=== PATIENT | female | born 1985 | race Caucasian/White ===

== ENCOUNTER 2017-03-29 14:05 | Emergency (ER) | payer MEDICAID, OTHER ==
[2017-03-29 14:17] VITALS: BP 147/93
--- NOTE | 2017-03-29 14:59 | RAD ---
INDICATION: Back pain. COMPARISON: CT abdomen pelvis July 27, 2015 TECHNIQUE: Routine PA, lateral, and oblique imaging was performed . FINDINGS: Bones: There are no acute bony findings. There are arthritic changes consisting of moderate narrowing about L4-L5 and mild narrowing about L5-S1, unchanged. Alignment: Normal Disc spaces: The disc spaces are well-maintained Soft tissues: There are no soft tissue abnormalities. There is an IUD. IMPRESSION: DEGENERATIVE NARROWING LOWER 2 LUMBAR DISC SPACES. NO ACUTE FINDINGS
== END 2017-03-29 16:01 | disposition left against medical advice (07) ==
LOC: ED 14:05
DX: M54.9 Dorsalgia, unspecified (principal); Z53.21 Procedure and treatment not carried out due to patient leaving prior to being seen by health care provider
CPT/HCPCS: 72110

== ENCOUNTER 2017-07-01 11:01 | Emergency (ER) | payer OTHER ==
[2017-07-01 12:57] VITALS: BP 164/89
[2017-07-01] MEDS ORDERED: Ketorolac INJ* 60 MG/2 ML VIAL IM ONE (15:07)
--- NOTE | 2017-07-01 15:08 | ED ---
Back Pain - History of Current Complaint Chief Complaint: EDBackInjuryPain Stated Complaint: FALL/BACK PAIN Time Seen by Provider: 07/01/17 13:32 Pain Intensity: 7 - Allergies/Home Medications Allergies/Adverse Reactions: Allergies Allergy/AdvReac Type Severity Reaction Status Date / Time Latex Allergy Rash And Verified 01/02/16 14:10 Itching PMH/Surg Hx/FS Hx/Imm Hx Musculoskeletal History: Reports: Other Musculoskeletal History - Bilateral Knee Surgery 13-15yo Psychiatric History: Reports: Hx Anxiety, Hx Depression, Hx Bipolar Disorder Denies: Hx Eating Disorder, Hx of Violent Episodes Against Others - Surgical History Surgery Procedure, Year, and Place: GASTRIC BYPASS - Immunization History Immunizations Up to Date: Yes Infectious Disease History: No Infectious Disease History: Denies: Traveled Outside the [place] in Last 30 Days - Family History Known Family History: Positive: Unknown - Social History Alcohol Use: Rare Substance Use Type: Reports: Marijuana Substance Use Comment - Amount & Last Used: last week Smoking Status (MU): Heavy Every Day Tobacco Smoker Physical Exam Vital Signs On Initial Exam: Initial Vitals Temp Pulse Resp BP Pulse Ox 97.0 F 85 18 145/91 97 07/01/17 11:14 07/01/17 11:14 07/01/17 11:14 07/01/17 11:14 07/01/17 11:14 - Tim Coma Scale Coma Scale Total: 15 Diagnostics - Vital Signs Vital Signs Temp Pulse Resp BP Pulse Ox 07/01/17 12:54 97.1 F 77 16 164/89 98 07/01/17 11:14 97.0 F 85 18 145/91 97 - Laboratory Lab Statement: Any lab studies that have been ordered have been reviewed, and results considered in the medical decision making process. Back Pain Course/Dx - Diagnoses Provider Diagnoses: Low back strain Discharge - Discharge Plan Condition: Stable Disposition: HOME Patient Education Materials: Low Back Strain (ED), Acute Low Back Pain (ED), Chronic Back Pain (ED) Referrals: Anamika Cai PA [Primary Care Provider] - Additional Instructions: Rest, apply heat. Avoid lifting and over use. Increase fluid intake. Continue taking ibuprofen, starting tomorrow as you already had todays dose. Do not take more than 800mg in 8 hours, take with food. Muscle relaxer at bed time. Prescribed pain medication only for break through pain, do not drive while taking this. Lidoderm patch or topical gels over the counter like salonpas to help with pain. Remember to remove patches, including the one placed on in ED, in 12 hours. Any new or worsening symptoms, seek medical attention as we discussed. Follow up with PCP.
[2017-07-01] MEDS ORDERED: Lidocaine PATCH 5%* 1 PATCH ONE (15:22)
[2017-07-01 15:50] LABS: Urine Bilirubin Negative (Negative); Urine Glucose Negative (Negative); Urine Nitrite Negative (Negative)
[2017-07-01] MEDS ORDERED: Lidocaine PATCH 5%* 1 PATCH TRANSDERM SCH (16:00)
[2017-07-01] MEDS ORDERED: Lidocaine Patch REMOVE* 1 NOTE MISC SCH (21:00)
== END 2017-07-01 16:03 | disposition home or self-care (01) ==
LOC: ED 11:01
DX: S39.012A Strain of muscle, fascia and tendon of lower back, initial encounter (principal); W19.XXXA Unspecified fall, initial encounter; Y92.9 Unspecified place or not applicable; F32.9 Major depressive disorder, single episode, unspecified; F41.9 Anxiety disorder, unspecified; Z98.84 Bariatric surgery status; Z72.0 Tobacco use
CPT/HCPCS: 81003; 96372; 99282; A9270-GY; J1885

== ENCOUNTER 2018-07-06 14:47 | Emergency (ER) | payer OTHER ==
[2018-07-06] MEDS ORDERED: NS 0.9% 1000 ML* 1,000 ML IV ONE (14:58)
[2018-07-06] MEDS ORDERED: Ketorolac INJ* 30 MG/ML 1 ML VIAL IV PUSH ONE (14:58)
[2018-07-06] MEDS ORDERED: Metoclopramide IV* 5 MG/ML 2 ML VIAL IV ONE (14:58)
[2018-07-06] MEDS ORDERED: DiMENhydriNATE IV* 50 MG/ML VIAL IV PUSH ONE (14:59)
--- NOTE | 2018-07-06 15:07 | ED ---
Headache - HPI Summary HPI Summary: This patient is a 33 year old F presenting to [facility] with a chief complaint of a sudden onset, fluctuating, throbbing occipital headache since 4 days ago. The patient rates the pain 6/10 in severity. Symptoms aggravated by exertion. Patient reports congestion, sensitivity to light, sensitivity to sound, nausea, vomiting (while sleeping), and seeing a starburst in her vision (yesterday). Patient denies a cough and sinus pain. Patient has been taking Tylenol and Excedrin migraine without relief. She has an IUD so has not had a LNMP recently. Patient reports a PMHx of anxiety, bipolar disorder, and autism. - History Of Current Complaint Chief Complaint: EDHeadache Stated Complaint: HEADACHE/VOMITING Time Seen by Provider: 07/06/18 14:58 Hx Obtained From: Patient Onset/Duration: Started days ago - 4 days ago, Still Present Currently Pain Is: Current Pain Scale(0-10)= - 6 Location of Headache: Occipital Aggravating Factor: Exertion Associated Signs And Symptoms: Nausea, Vomiting - while sleeping, Visual Changes - Sensitivity to light, seeing a starburst in her vision (yesterday), Other (Noted In Comments) - Sensitivity to sound, congestion. Denies cough and sinus pain. - Allergies/Home Medications Allergies/Adverse Reactions: Allergies Allergy/AdvReac Type Severity Reaction Status Date / Time latex Allergy Rash And Verified 07/06/18 14:48 Itching PMH/Surg Hx/FS Hx/Imm Hx Endocrine/Hematology History: Denies: Hx Diabetes Cardiovascular History: Denies: Hx Hypertension Respiratory History: Denies: Hx Asthma Musculoskeletal History: Reports: Other Musculoskeletal History - Bilateral Knee Surgery [age]yo Psychiatric History: Reports: Hx Anxiety, Hx Depression, Hx Bipolar Disorder Denies: Hx Eating Disorder, Hx of Violent Episodes Against Others - Surgical History Surgery Procedure, Year, and Place: GASTRIC BYPASS Infectious Disease History: No Infectious Disease History: Denies: Traveled Outside the [place] in Last 30 Days - Family History Known Family History: Positive: Cardiac Disease, Other - MS, cancer - Social History Alcohol Use: Rare Substance Use Type: Reports: Marijuana Substance Use Comment - Amount & Last Used: last week Smoking Status (MU): Heavy Every Day Tobacco Smoker Review of Systems Positive: Other - Congestion. Denies sinus pain. Negative: Cough Positive: Vomiting - while sleeping, Nausea Neurological: Other - Sensitivity to light, sensitivty to sound, seeing a starburst in her vision (yesterday) Positive: Headache - sudden onset, fluctuating, throbbing occipital headache All Other Systems Reviewed And Are Negative: Yes Physical Exam - Summary Physical Exam Summary: Appearance: Well appearing, obese, no pain distress Skin: warm, dry, reflects adequate perfusion Head/face: normal Eyes: EOMI, KATELYN ENT: Slight clear nasal congestion, no sinus tenderness Neck: supple, non-tender, no meningismus Respiratory: CTA, breath sounds present Cardiovascular: RRR, pulses symmetrical Abdomen: non-tender, soft Bowel Sounds: present Musculoskeletal: normal, strength/ROM intact Neuro: normal, sensory motor intact, A&Ox3 Triage Information Reviewed: Yes Vital Signs On Initial Exam: Initial Vitals Temp Pulse Resp BP Pulse Ox 97.3 F 102 18 117/65 97 07/06/18 14:49 07/06/18 14:49 07/06/18 14:49 07/06/18 14:49 07/06/18 14:49 Vital Signs Reviewed: Yes Diagnostics - Vital Signs Vital Signs Temp Pulse Resp BP Pulse Ox 07/06/18 14:49 97.3 F 102 18 117/65 97 - Laboratory Lab Statement: Any lab studies that have been ordered have been reviewed, and results considered in the medical decision making process. Re-Evaluation - Re-Evaluation 1 Re-Evaluation Time: 16:14 Change: Improved Comment: Headache has totally resolved. Headache Course/Dx - Course Course Of Treatment: Nurse's note reviewed. Patient with occipital headache exacerbated by stress. Neurologically normal and well appearing. No neurologic signs and no thunderclap headache. Treated here with full relief. Discharged in good condition to follow up closely with primary care physician. - Diagnoses Differential Diagnosis/HQI/PQRI: Migraine, Sinus Headache, Tension Headache, Viral Syndrome Provider Diagnoses: Tension type headache Discharge - Sign-Out/Discharge Documenting (check all that apply): Patient Departure - D/C - Discharge Plan Condition: Improved Disposition: HOME Prescriptions: Promethazine TAB* [Phenergan Tab*] 25 mg PO Q8H PRN #20 tab PRN Reason: headache/nausea Patient Education Materials: Tension Headache (ED) Referrals: Anamika Cai PA [Primary Care Provider] - Additional Instructions: Stay well-hydrated. Prescribed medication to be taken with Benadryl and ibuprofen as needed for worsening. This may cause drowsiness. Do not drive while taking. Return with fevers, neck pains, severe headaches, new symptoms or other concerns. Follow-up with your doctor on Sunday. - Billing Disposition and Condition Condition: IMPROVED Disposition: Home - Attestation Statements Document Initiated by Felix: Yes Documenting Scribe: Kevin Foley Provider For Whom Scribe is Documenting (Include Credential): Benny Orellana MD Scribe Attestation: Kevin Payne, scribed for Benny Orellana MD on 07/06/18 at 1659. Scribe Documentation Reviewed: Yes Provider Attestation: The documentation as recorded by the Kevin jacobs accurately reflects the service I personally performed and the decisions made by , Benny Orellana MD Status of Scribe Document: Viewed
[2018-07-06 16:30] VITALS: BP 112/57
== END 2018-07-06 16:27 | disposition home or self-care (01) ==
LOC: ED 14:47
DX: G44.209 Tension-type headache, unspecified, not intractable (principal); R11.10 Vomiting, unspecified; F17.210 Nicotine dependence, cigarettes, uncomplicated
CPT/HCPCS: 96361; 96374; 96375; 99282; J1240; J1885; J2765

== ENCOUNTER 2018-07-07 05:23 | Emergency (ER) | payer OTHER ==
[2018-07-07] MEDS ORDERED: NS 0.9% 1000 ML* 1,000 ML IV ONE (06:37)
[2018-07-07 06:52] LABS: ABS Basophils 0.1 10^3/ul (0-0.2); ABS Eosinophils 0.9 10^3/ul (0-0.6); ABS Lymphocytes 2.8 10^3/ul (1.0-4.8); ABS Monocytes 0.8 10^3/ul (0-0.8); ABS Neutrophils 5.1 10^3/ul (1.5-7.7); ABS Nucleated RBC 0 10^3/ul; Eosinophil % 9.2 %; Hematocrit 35 % (35-47); Hemoglobin 11.5 g/dl (12.0-16.0); Lymphocyte % 28.7 %; Mean Corpuscular HGB Conc 33 g/dl (31-36); Mean Corpuscular Hemoglobin 29 pg (27-31); Mean Corpuscular Volume 88 fL (80-97); Mean Platelet Volume 7.1 fL (7.4-10.4); Nucleated Red Blood Cells % 0; Platelet Count 317 10^3/ul (150-450); Red Blood Count 3.96 10^6/ul (4.00-5.40); Red Cell Distribution Width 19 % (10.5-15); White Blood Count 9.6 10^3/ul (3.5-10.8)
[2018-07-07 07:01] LABS: Activated Partial Thrombo Time 34.3 seconds (26.0-36.3); INR 0.82 (0.77-1.02)
[2018-07-07 07:10] LABS: ALT 31 U/L (7-52); AST 27 U/L (13-39); Albumin 3.8 g/dL (3.2-5.2); Albumin/Globulin Ratio 1.5 (1-3); Alkaline Phosphatase 115 U/L (34-104); Anion Gap 5 mmol/L (2-11); BUN/Creatinine Ratio 13.8 (8-20); Blood Urea Nitrogen 12 mg/dL (6-24); CO2 Carbon Dioxide 23 mmol/L (22-32); Calcium 8.7 mg/dL (8.6-10.3); Chloride 109 mmol/L (101-111); Globulin 2.6 g/dL (2-4); Glucose 85 mg/dL (70-100); Potassium 4.1 mmol/L (3.5-5.0); Sodium 137 mmol/L (135-145); Total Protein 6.4 g/dL (6.4-8.9)
--- NOTE | 2018-07-07 07:11 | ED ---
Headache - HPI Summary HPI Summary: Patient presents again today with return of headache. She was seen yesterday for headache and treated with Dramamine, Reglan, Toradol and normal saline. This alleviated her headache while here however she reports after getting home, headache returned and has been unbearable since. She reports this headache started on Sunday (5 days ago) as a dull headache in the middle of the day - slow at onset and progressed throughout the day. She reports this is a bitemporal headache that she also feels on both sides of her neck into the back and shoulder area. Associated sx on Sunday only include waking with vomiting, aura "starburts" in B/L vision, Lt arm "pins and needles" which resolved following day (no weakness). Following day she reports tingling in Rt arm - this has also resolved. Today, MOON is throbbing. Denies dizziness, syncope, dysarthria, dysphagia, confusion. Reports she is not prone to headaches so this is unusual for her. She reports a history of tension in her neck and shoulders and her tries massages for her although he sometimes gets "cramps in his hands" due to the severity of her tension. She has not had professional bodywork such as massage, chiropractor, etc. to alleviate this issue. Also reports she started taking Lamictal 1 month ago. She's had loose stools since. Could be dehydrated. She also started CBD oil 1 week ago. She admits to smoking marijuana in addition to this. Furthermore, she admits when she has anxiety or feels overwhelmed, she is prone to striking her head on hard surfaces. She reports striking her head one week ago which resulted in a hematoma on her forehead. She denies loss of consciousness at that time and no acute pain during or immediately after the episode. Sinus congestion persists w/ intermittent ear pressure. Has not tried anything for this. Smokes 1 PPD and home temp 69F. Denies fever, chills, sneezing, change in cough (has chronic cough from smoking). Mom h/o MS - has not been evaluated d/t lack of neuro sx. - History Of Current Complaint Chief Complaint: EDHeadache Stated Complaint: HEADACHE Time Seen by Provider: 07/07/18 05:43 Hx Obtained From: Patient, Family/Laundry Bag Punch Operator - mother - Allergies/Home Medications Allergies/Adverse Reactions: Allergies Allergy/AdvReac Type Severity Reaction Status Date / Time latex Allergy Rash And Verified 07/07/18 05:38 Itching Home Medications: Home Medications Gabapentin 300 mg PO BEDTIME PRN 07/07/18 [History Confirmed 07/07/18] Levothyroxine Sodium 75 mcg PO QAM 07/07/18 [History Confirmed 07/07/18] Lurasidone(*) [Latuda] 120 mg PO DAILY 07/07/18 [History Confirmed 07/07/18] Omeprazole 40 mg PO DAILY 07/07/18 [History Confirmed 07/07/18] clonazePAM [Clonazepam] 0.5 mg PO TID 07/07/18 [History Confirmed 07/07/18] lamoTRIgine [Lamotrigine] 100 mg PO DAILY 07/07/18 [History Confirmed 07/07/18] PMH/Surg Hx/FS Hx/Imm Hx Previously Healthy: No - MOON yesterday Endocrine/Hematology History: Reports: Hx Thyroid Disease - takes levothyroxine Denies: Hx Diabetes, Hx Anemia, Autoimmune Disease Cardiovascular History: Denies: Hx Aneurysm, Hx Hypertension Respiratory History: Denies: Hx Asthma GI History: Reports: Hx Gastroesophageal Reflux Disease - takes PRN PPI and sucralfate Musculoskeletal History: Reports: Hx Back Problems - neck/shoulder tension, Other Musculoskeletal History - Bilateral Knee Surgery 13-15yo Sensory History: Reports: Hx Contacts or Glasses Opthamlomology History: Reports: Hx Contacts or Glasses Neurological History: Denies: Hx Migraine, Hx Peripheral Neuropathy, Hx Seizures Psychiatric History: Reports: Hx Anxiety, Hx Depression, Hx Bipolar Disorder, Other Psychiatric Issues/Disorders - on multiple medications, h/o self-injurous behavior Denies: Hx Eating Disorder, Hx of Violent Episodes Against Others - Surgical History Surgery Procedure, Year, and Place: GASTRIC BYPASS Infectious Disease History: No Infectious Disease History: Denies: Traveled Outside the [place] in Last 30 Days - Family History Known Family History: Positive: Cardiac Disease, Other - MS, cancer - Social History Occupation: Unemployed Lives: With Family - Alcohol Use: Weekly Hx Substance Use: Yes Substance Use Type: Reports: Marijuana - 2 days ago -also takes CBD Hx Tobacco Use: Yes Smoking Status (MU): Current Every Day Smoker Amount Used/How Often: 1PPD Review of Systems Constitutional: Negative Negative: Fever, Chills, Fatigue Eyes: Other - aura Sunday Negative: Photophobia, Blurred Vision, Diplopia, Drainage, Erythema ENT: Other - sinus pressure Rt > Lt Cardiovascular: Negative Positive: Cough - unchanged/chronic Positive: Vomiting - Sunday only Genitourinary: Negative Musculoskeletal: Other - neck/shoulder tension Skin: Negative Positive: Headache, Paresthesia - each arm on separate days - resolved. Negative: Weakness, Numbness, Syncope, Slurred Speech Psychological: Normal All Other Systems Reviewed And Are Negative: Yes Physical Exam Triage Information Reviewed: Yes Vital Signs On Initial Exam: Initial Vitals Temp Pulse Resp BP Pulse Ox 97.7 F 91 16 145/87 97 07/07/18 05:34 07/07/18 05:34 07/07/18 05:34 07/07/18 05:34 07/07/18 05:34 Vital Signs Reviewed: Yes Appearance: Positive: Well-Appearing, Pain Distress - mild, Obese Skin: Positive: Warm, Skin Color Reflects Adequate Perfusion, Dry - healing linear scabs over Lt forearm (appear to be self-injurous wounds) Head/Face: Positive: Normal Head/Face Inspection Eyes: Positive: Normal, EOMI, KATELYN, Conjunctiva Clear. Negative: Conjunctiva Inflammed, Discharge ENT: Positive: Hearing grossly normal, Nasal congestion, Nasal drainage - dried blood and nasal d/c, TMs normal, Sinus tenderness - B/L frontal and Rt maxillary > Lt, Uvula midline. Negative: Pharynx normal - dry mucous membranes with dried blood flecks over soft palate, Tonsillar swelling, Tonsillar exudate , Trismus, Muffled voice, Hoarse voice Neck: Positive: Supple, No Lymphadenopathy, Tenderness @ - submandibular Respiratory/Lung Sounds: Positive: Clear to Auscultation, Breath Sounds Present. Negative: Rales, Rhonchi, Stridor, Tracheal Deviation, Wheezes, Unable to speak in full sentences, Fatigue Cardiovascular: Positive: Normal, RRR, S1, S2. Negative: Murmur, Rub Musculoskeletal: Positive: Normal, Strength/ROM Intact Neurological: Positive: Normal, Sensory/Motor Intact, Alert, Oriented to Person Place, Time, CN Intact II-III, Facial Symmetry, Speech Normal Psychiatric: Positive: Normal Diagnostics - Vital Signs Vital Signs Temp Pulse Resp BP Pulse Ox 07/07/18 05:34 97.7 F 91 16 145/87 97 - Laboratory Lab Results: Lab Results 07/07/18 07/07/18 Range/Units 06:46 06:46 WBC 9.6 (3.5-10.8) 10^3/ul RBC 3.96 L (4.00-5.40) 10^6/ul Hgb 11.5 L (12.0-16.0) g/dl Hct 35 (35-47) % MCV 88 (80-97) fL MCH 29 (27-31) pg MCHC 33 (31-36) g/dl RDW 19 H (10.5-15) % Plt Count 317 (150-450) 10^3/ul MPV 7.1 L (7.4-10.4) fL Neut % (Auto) 52.8 % Lymph % (Auto) 28.7 % Loup % (Auto) 8.4 % Eos % (Auto) 9.2 % Baso % (Auto) 0.9 % Absolute Neuts (auto) 5.1 (1.5-7.7) 10^3/ul Absolute Lymphs (auto) 2.8 (1.0-4.8) 10^3/ul Absolute Monos (auto) 0.8 (0-0.8) 10^3/ul Absolute Eos (auto) 0.9 H (0-0.6) 10^3/ul Absolute Basos (auto) 0.1 (0-0.2) 10^3/ul Absolute Nucleated RBC 0 10^3/ul Nucleated RBC % 0 ESR Pending INR (Anticoag Therapy) 0.82 (0.77-1.02) APTT 34.3 (26.0-36.3) seconds Result Diagrams: 07/07/18 06:46 07/07/18 06:46 Lab Statement: Any lab studies that have been ordered have been reviewed, and results considered in the medical decision making process. Re-Evaluation - Re-Evaluation First Eval Change: Improved - pain improved to 2/10 Headache Course/Dx - Course Course Of Treatment: CT: no hemorrhage or swelling in brain; maxilla w/ mild mucosal thickening. Labs: unremarkable for acute pathology. improved w/ cocktail -added steroid today and will start tx of sinus infection. Also recommended addressing neck/shoulder tension which could be triggering MOON along w/ other potential factors (see d/c for details). Advised to f/u w/ PCP and return to ED for danger s/sx. - Diagnoses Provider Diagnoses: Headache, Sinusitis, acute maxillary, Muscle tightness Discharge - Sign-Out/Discharge Documenting (check all that apply): Patient Departure - Discharge Plan Condition: Stable Disposition: HOME Patient Education Materials: How to Stop Smoking (ED), Sinusitis (ED), Tension Headache (ED) Referrals: Anamika Cai PA [Primary Care Provider] - Additional Instructions: The definitive cause of your headache was not identified today however it is suspected this could be from various factors: *Tension in neck and shoulders *CBD oil *Lamictal *Stress *Sinus infection *Dehydration You have been provided with a "migraine cocktail" of medications here today. See education from yesterday for ongoing home treatment of headache. You may alternate ibuprofen 600mg every 6 hours with acetaminophen extra strength every 6 hours as needed for pain. You were provided with an anti-nausea medication yesterday - go to pharmacy to pick this up and take as needed. Stop CBD oil and refrain from smoking marijuana until follow-up with prescriber. Follow-up with PCP to better identify root cause and makes changes as necessary. Call tomorrow to schedule an appointment this week if symptoms persist. For sinusitis: Complete antibiotics as directed Nasal wash (netti pot or saline spray) & salt water throat gargles 2 x day Drink you body weight in ounces of water every day - may also drink soup brothes, watered down juices, etc Sleep 8+ hours per night Avoid Dairy and sugar Hot herbal/decaf tea with lemon & honey Chicken broth (preferably organic, free range chicken) Humidifier in house, but especially near bed at night Keep home temperature at 68F or less to reduce dryness Use cough drops/throat lozenges Try a facial steam with or without eucalyptus essential oil or Flo's Vapor rub for congestion Avoid smoking, candles, perfumes, colognes, scented soaps/detergents , air fresheners and cleaning chemicals as these can cause airway irritation and trigger coughing Start MULTIVITAMIN during winter months Follow-up with PCP to have Vitamin D levels checked Start probiotics in between antibiotics (ie. Yogurt and/or capsules of L. acidophilus, L. bifidus, L. casei, etc) *If you have neurological deficits, high fever > 103F with taking acetaminophen and ibuprofen, lethargy, etc return to ED. Otherwise, follow-up with PCP. Call tomorrow to schedule an appointment. - Billing Disposition and Condition Condition: STABLE Disposition: Home
[2018-07-07 07:17] LABS: HCG Pregnancy < 0.60 mIU/mL
[2018-07-07] MEDS ORDERED: Dexamethasone IV* 4 MG/ML 1 ML (4 MG) IV SLOW PU ONE (07:22)
[2018-07-07] MEDS ORDERED: Ketorolac INJ* 30 MG/ML 1 ML VIAL IV PUSH ONE (07:22)
[2018-07-07] MEDS ORDERED: Metoclopramide IV* 5 MG/ML 2 ML VIAL IV ONE (07:22)
[2018-07-07] MEDS ORDERED: DiMENhydriNATE IV* 50 MG/ML VIAL IV PUSH ONE (07:22)
[2018-07-07 07:39] LABS: Erythrocyte Sed Rate 23 mm/Hr (0-14)
[2018-07-07 07:40] LABS: TSH (Thyroid Stimulating Horm) 1.42 mcIU/mL (0.34-5.60)
[2018-07-07 08:35] VITALS: BP 145/90
== END 2018-07-07 08:34 | disposition home or self-care (01) ==
LOC: ED 05:23
DX: R51 Headache (principal); J01.00 Acute maxillary sinusitis, unspecified; F17.210 Nicotine dependence, cigarettes, uncomplicated; M62.9 Disorder of muscle, unspecified; F32.9 Major depressive disorder, single episode, unspecified; K21.9 Gastro-esophageal reflux disease without esophagitis; F41.9 Anxiety disorder, unspecified
CPT/HCPCS: 36415; 70450; 70486; 80053; 83605; 83735; 84443; 84702; 85025; 85610; 85652; 85730; 96361; 96374; 96375; 99283; J1100; J1240; J1885; J2765

== ENCOUNTER 2018-07-08 17:08 | Emergency (ER) | payer OTHER ==
[2018-07-08] MEDS ORDERED: Nicotine Inhaler* 10 MG AMP INH PRN (17:27)
[2018-07-08] MEDS ORDERED: Mouth Piece, Nicotine* 1 EACH CARTRIDGE INH PRN (17:42)
[2018-07-08 17:48] LABS: ABS Basophils 0.1 10^3/ul (0-0.2); ABS Eosinophils 0.6 10^3/ul (0-0.6); ABS Lymphocytes 4.4 10^3/ul (1.0-4.8); ABS Neutrophils 6.4 10^3/ul (1.5-7.7); ABS Nucleated RBC 0 10^3/ul; Eosinophil % 4.5 %; Hematocrit 38 % (35-47); Hemoglobin 12.6 g/dl (12.0-16.0); Lymphocyte % 35.2 %; Mean Corpuscular HGB Conc 33 g/dl (31-36); Mean Corpuscular Hemoglobin 29 pg (27-31); Mean Corpuscular Volume 88 fL (80-97); Mean Platelet Volume 6.9 fL (7.4-10.4); Nucleated Red Blood Cells % 0; Platelet Count 359 10^3/ul (150-450); Red Blood Count 4.36 10^6/ul (4.00-5.40); Red Cell Distribution Width 19 % (10.5-15); White Blood Count 12.4 10^3/ul (3.5-10.8)
[2018-07-08 18:05] LABS: ALT 36 U/L (7-52); AST 29 U/L (13-39); Albumin 4.4 g/dL (3.2-5.2); Albumin/Globulin Ratio 1.4 (1-3); Alkaline Phosphatase 109 U/L (34-104); Anion Gap 10 mmol/L (2-11); BUN/Creatinine Ratio 6.8 (8-20); Blood Urea Nitrogen 6 mg/dL (6-24); CO2 Carbon Dioxide 20 mmol/L (22-32); Chloride 111 mmol/L (101-111); Globulin 3.2 g/dL (2-4); Glucose 106 mg/dL (70-100); Potassium 3.8 mmol/L (3.5-5.0); Sodium 141 mmol/L (135-145); Total Protein 7.6 g/dL (6.4-8.9)
[2018-07-08 18:11] LABS: HCG Pregnancy < 0.60 mIU/mL
[2018-07-08 18:21] LABS: Acetaminophen < 15 mcg/mL; Alcohol 144 mg/dL (<10); Salicylate < 2.50 mg/dL (<30)
[2018-07-08 18:36] LABS: TSH (Thyroid Stimulating Horm) 3.35 mcIU/mL (0.34-5.60)
[2018-07-08 18:47] LABS: Urine Appearance Cloudy; Urine Bacteria Absent (Absent); Urine Bilirubin Negative (Negative); Urine Blood Negative (Negative); Urine Color Yellow; Urine Glucose Negative (Negative); Urine Ketones Negative (Negative); Urine Nitrite Negative (Negative); Urine Protein Negative (Negative); Urine Red Blood Cell Trace(0-2/hpf) (Absent); Urine Urobilinogen Negative (Negative); Urine White Blood Cell Trace(0-5/hpf) (Absent)
[2018-07-08 18:58] LABS: Barbiturates Urine Screen None Detected (None Detect); Benzodiazepine Urine Screen None Detected (None Detect); Urine Cannabinoids Screen Presumptive Positive (None Detect)
[2018-07-08] MEDS ORDERED: Ketorolac TAB * 10 MG TAB PO ONE (20:12)
[2018-07-08] MEDS ORDERED: Metoclopramide TAB* 10 MG PO ONE (20:14)
[2018-07-08] MEDS ORDERED: diPHENhydraMINE PO* 25 MG PO ONE (20:14)
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
[2018-07-08 21:44] VITALS: BP 127/82
== END 2018-07-08 21:54 | disposition home or self-care (01) ==
LOC: ED 17:08
DX: F32.9 Major depressive disorder, single episode, unspecified (principal); R51 Headache; F17.210 Nicotine dependence, cigarettes, uncomplicated; E07.9 Disorder of thyroid, unspecified
CPT/HCPCS: 36415; 80053; 80307; 80320; 80329; 81003; 81015; 84443; 84702; 85025; 87086; 99285; A9270-GY; G0480

== ENCOUNTER 2019-08-02 10:13 | Emergency (ER) | payer MEDICARE, MEDICAID ==
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
--- OUTSIDE RECORDS SUMMARY | 2019-08-02 10:31 | XMS REPORT | Summary of Care ---
:1985 Author Organization [facility] Address [address] [facility] [place] [address] Care Team Providers Name Role Phone Anamika Cai PA-C Primary Care Provider Reason for Visit Reason Comments Follow-up Patient c/o left knee pain for about 1 year. Previous injections have given her 65% relief for 2months. Pain currently 8/10. Injection Encounter Details Date Type Department Care Team Description 07/22/2019 Office Visit [facility] Srinivas Emn, Osteoarthrosis, localized, primary, knee, left (Primary Dx) ; [address] [place] Chronic pain of left knee; [address] [facility] Hx [place] anterior [place] [address] [place] [address] [phone] Allergies Active Allergy Reactions Severity Noted Date Comments Latex Rash 11/17/2010 documented as of this encounter (statuses as of 07/22/2019) Medications Medication Sig Dispensed Refills Start Date [...] EVERY 7 VITAMIN D) 1.25 MG DAYS (74648 UT) Oral Cap documented as of this encounter (statuses as of 07/22/2019) Active Problems Problem Noted Date Hx of anterior cruciate ligament tear reconstruction 11/05/2018 Hypothyroidism 02/11/2018 Tobacco abuse 08/21/2016 Bipolar II disorder 01/10/2016 Insomnia 11/13/2015 documented as of this encounter (statuses as of 07/22/2019) Resolved Problems Problem Noted Date Resolved Date OLIMPIA (generalized anxiety disorder) 11/13/2015 01/10/2016 Depression 10/23/2012 01/10/2016 Anxiety state, unspecified 10/23/2012 01/10/2016 documented as of this encounter (statuses as of 07/22/2019) Immunizations Name Administration Dates Next Due Influenza (IM) W/Pres 08/21/2016 TDAP Vaccine 04/12/2016 documented as of this encounter Social History Tobacco Use Types Packs/Day Years Used Date Current Every Day Smoker Cigarettes 1 Smokeless Tobacco: Never Used Tobacco Cessation: Ready to Quit: No; Counseling Given: Yes Alcohol Use Drinks/Week oz/Week Comments 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 documented as of this encounter Last Filed Vital Signs Vital Sign Reading Time Taken Comments Blood Pressure 136/78 07/22/2019 11:51 AM EST Pulse - - Temperature - - Respiratory Rate - - Oxygen Saturation - - Inhaled Oxygen Concentration - - Weight 140.6 kg (310 lb) 07/22/2019 11:51 AM EST Height 166.4 cm (5' 5.5") 07/22/2019 11:51 AM EST Body Mass Index 50.8 07/22/2019 11:51 AM EST documented in this encounter Progress Notes Daniela Em PA-C - 07/22/2019 11:45 AM EST Patient: Nataly Nj : 1985 Date ofService: 07/22/2019 Chief Complaint Patient presents with Follow-up Patient c/o left knee pain for about 1 year. Previous injections have given her 65% relief for 2months. Pain currently /10. Injection HPI: Nataly Nj is a 34-y.o. female who presents to the clinic today for a follow up appointment of her left knee pain. Patient has a history of a left knee arthroscopy, a failed left ACL reconstruction and left knee osteoarthritis. Patient states that her pain recently flared up. Cortisone injections provide her with at least a few months of relief. She has had two in the past. Her pain is present throughout the knee. Past Medical Hx: has a past medical history of Head injury, Lyme disease, Obesity, Psychiatric problem, and Seizures (HCC). PAST SURGICAL HISTORY: has a past surgical history that includes high gastric bypass; pr arthrotomy,open repair meniscus; egd (N/A, 11/12/2017); and knee arthroscopy. MEDICATIONS: Current Outpatient Medications: albuterol HFA (VENTOLIN) 108 (90 Base) MCG/ACT Inhalation Aero Soln, Take 2 Puffs by inhalation EVERY 4-6 HOURS PRN (cough/wheezing)., Disp: 1 Inhaler, Rfl: 0 celeCOXIB (CELEBREX) 200 MG Oral Cap, Take 1 Cap by mouth DAILY., Disp: 30 Cap, Rfl: 2 cetirizine (ZYRTEC ALLERGY) 10 MG Oral Tab, Take 1 Tab by mouth DAILY., Disp: 30 Tab, Rfl: 5 clonazePAM (KLONOPIN) 0.5 MG Oral Tab, Take 0.5 mg by mouth THREE TIMES DAILY NEEDED (anxiety)., Disp: , Rfl: CYANOCOBALAMIN PO, Take by mouth DAILY., Disp: , Rfl: diclofenac (VOLTAREN) 1 % Transdermal Gel, 2 g by Topical route FOUR TIMES DAILY NEEDED (pain)., Disp: 200 g, Rfl: 2 ergocalciferol (DRISDOL, CALCIFEROL, VITAMIN D) 1.25 MG (59359 UT) Oral Cap, TAKE ONE CAPSULE BY MOUTH EVERY 7 DAYS, Disp: 12 Cap, Rfl: 0 gabapentin (NEURONTIN) 300 MG Oral Cap, Take 1 Cap by mouth THREE TIMES DAILY., Disp: 90 Cap, Rfl: 2 levothyroxine (SYNTHROID) 75 MCG Oral Tab, Take 1 Tab by mouth BEFORE BREAKFAST., Disp: 30 Tab, Rfl: 5 Omeprazole 40 MG Oral CAPSULE DELAYED RELEASE, TAKE ONE CAPSULE EVERY DAY, Disp: 90 Cap, Rfl: 1 ondansetron (ZOFRAN ODT) 4 MG Oral TABLET DISPERSIBLE, Take 1 Tab by mouth EVERY SIX HOURS NEEDED (nausea)., Disp: 30 Tab, Rfl: 0 risperidone (RISPERDAL) 2 MG Oral Tab, Take 2 mg by mouth TWICE DAILY. And then an additional 1mg PRN, Disp: , Rfl: sumatriptan (IMITREX) 25 MG Oral Tab, Take 1 Tab by mouth ONCE NEEDED (migraine) for up to 1 dose. Repeat in 2 hours if necessary., Disp: 15 Tab, Rfl: 5 topiramate (TOPAMAX) 25 MG Oral Tab, Take 1 Tab by mouth TWICE DAILY., Disp: 60 Tab, Rfl: 5 Venlafaxine HCl 150 MG Oral TABLET SR 24 HR, Take by mouth DAILY., Disp : , Rfl: ALLERGIES: is allergic to latex. SOCIAL HISTORY: reports that she has been smoking cigarettes. She has been smoking about 1.00 pack per day. She has never used smokeless tobacco. She reports current drug use. Drug: Marijuana. She reports that she does not drink alcohol. FAMILY HISTORY: family history includes Anxiety in her father; Bipolar Disorder in her father; Depression/Depressed in her father; Heart in her father and mother. ROS: See HPI otherwise all other ROS are negative at this time Exam: Appearance: Patient is a well developed, well nourished female in no acute distress. Alert and oriented times three. Vitals: BP 136/78 | Ht 5' 5.5" (1.664 m) | Wt 310 lb (140.6 kg) | BMI 50.80 kg/m Body mass index is 50.8 kg/m. Gait: Patient walks with unassisted , normal gait. Integumentary: Skin overlying the knee is healthy without any erythema, ecchymosis, masses, rashes,or lesions. Knee: There is knee effusion. Range of motion of the left knee demonstrates extension5, flexion 105. There is crepitus throughout range of motion. There is pain at extremes of motion. Patient has tenderness over the lateral joint line. Impression: ICD-9-CM ICD-10-CM 1. Osteoarthrosis, localized, primary, knee, left 715.16 M17.12 2. Chronic pain of left knee 719.46 M25.562 338.29 G89.29 3. Hx of anterior cruciate ligament tear reconstruction V45.89 Z98.890 Plan: The patient was advised of the above diagnosis including the pathology, prognosis, and furthertreatment options. Options for non-surgical management included continued activity modification, intermittent use of NSAIDs, therapeutic exercises, walking aids, physical therapy. More invasive management with adifferential injection was also discussed. At this time she has elected to proceed with a left knee cortisone injection. Her questions and concerns were addressed and answered to her satisfaction. The patient was educated on the risks and benefits of an injection. She understands and they wish toproceed. Therefore, under sterile conditions, the patient's left knee was injected with 9 cc of lidocaine and 80 mg of Depo- Medrol.The patient tolerated the procedure well, had no adverse effects following the injection. They will ice the affected area tonight, and they will call me back if there is any adverse reaction. She will follow up as needed for repeat injections or sooner if necessary. Author: Daniela Em PA-C 12:04. 07/22/2019 documented in this encounter Plan of Treatment Date Type Specialty Care Team Description 08/07/2019 Office Visit scale technician Nani Carbajal RPA-C [address] [place] [address] [phone] Health Maintenance Due Date Last Done Comments [...] control of your depression. Work with your Embedded Software Development Engineer General No Anamika Cai PA-C Note: This is an individualized treatment (frequent ED use) goal for Nataly Nj: Please work with your Embedded Software Development Engineer, who will assist you in meeting your [...] ongoing basis. documented as of this encounter Results Not on filedocumented in this encounter Visit Diagnoses Diagnosis Osteoarthrosis, localized, primary, knee, left Chronic pain of left knee Pain in joint, lower leg Hx of anterior cruciate ligament tear reconstruction Personal history of surgery to other organs documented in this encounter Insurance Payer Benefit Plan / Subscriber ID Effective Dates Phone Address Type Group MEDICARE MEDICARE PART A xxxxxxxxxxx 2018-Present Medicare & B MEDICAID [facility] xxxxxxxx 2018-Present Medicaid [place] MEDICAID documented as of this encounter
--- NOTE | 2019-08-02 11:04 | ED ---
Lower Extremity - HPI Summary HPI Summary: Pt is a 34 y/o F presenting to the ED with a chief complaint of L knee pain. She notes chronic knee pain, but she fell last night on a patch of ice, and her knee went sideways. Shes been unable to walk on it. She denies any other sx, including fever or chest pain. Medications reviewed. Allergies noted. - History of Current Complaint Chief Complaint: EDExtremityLower Stated Complaint: LT KNEE INJ FROM FALL PER PT Time Seen by Provider: 08/02/19 10:43 Hx Obtained From: Patient Mechanism Of Injury: Fall From A Standing Position Onset of Pain: Immediate Onset/Duration: Still Present Severity Initially: Moderate Severity Currently: Severe Pain Intensity: 7 Pain Scale Used: 0-10 Numeric Timing: Constant, Lasting Hours Associated Signs And Symptoms: Positive: Knee Pain. Negative: Fever Aggravating Factor(s): Movement Alleviating Factor(s): Nothing Able to Bear Weight: No - Allergies/Home Medications Allergies/Adverse Reactions: Allergies Allergy/AdvReac Type Severity Reaction Status Date / Time latex Allergy Rash And Verified 08/02/19 10:23 Itching Home Medications: Home Medications clonazePAM TAB(*) [Klonopin TAB(*)] 1 tab PO QID 08/02/19 [History Confirmed ] clonazePAM [Clonazepam] 1 mg PO TID PRN 08/02/19 [History Confirmed 08/02/19] PMH/Surg Hx/FS Hx/Imm Hx Previously Healthy: Yes Endocrine/Hematology History: Reports: Hx Thyroid Disease - takes levothyroxine Denies: Hx Diabetes, Hx Anemia Cardiovascular History: Denies: Hx Aneurysm, Hx Hypertension Respiratory History: Denies: Hx Asthma GI History: Reports: Hx Gastroesophageal Reflux Disease - takes PRN PPI and sucralfate History: Denies: Hx Dialysis Musculoskeletal History: Reports: Hx Back Problems - neck/shoulder tension, Other Musculoskeletal History - Bilateral Knee Surgery 13-15yo Sensory History: Reports: Hx Contacts or Glasses Opthamlomology History: Reports: Hx Contacts or Glasses Neurological History: Denies: Hx Migraine, Hx Peripheral Neuropathy, Hx Seizures Psychiatric History: Reports: Hx Anxiety, Hx Depression, Hx Bipolar Disorder, Other Psychiatric Issues/Disorders - on multiple medications, h/o self-injurous behavior Denies: Hx Eating Disorder, Hx of Violent Episodes Against Others - Surgical History Surgery Procedure, Year, and Place: GASTRIC BYPASS Infectious Disease History: No Infectious Disease History: Denies: Traveled Outside the [place] in Last 30 Days - Family History Known Family History: Positive: Cardiac Disease, Other - MS, cancer - Social History Alcohol Use: Weekly Hx Substance Use: Yes Substance Use Type: Reports: Marijuana Substance Use Comment - Amount & Last Used: last week Hx Tobacco Use: Yes Smoking Status (MU): Current Every Day Smoker Amount Used/How Often: 1PPD Review of Systems Negative: Fever Negative: Chest Pain Positive: Myalgia All Other Systems Reviewed And Are Negative: Yes Physical Exam - Summary Physical Exam Summary: Constitutional: Well-developed, Well-nourished, Alert. (-) Distressed Skin: Warm, Dry HENT: Normocephalic; Atraumatic Eyes: Conjunctiva normal Neck: Musculoskeletal ROM normal neck. (-) JVD, (-) Stridor, (-) Tracheal deviation Cardio: Rhythm regular, rate normal, Heart sounds normal; Intact distal pulses; Radial pulses are 2+ and symmetric. (-) Murmur Pulmonary/Chest wall: Effort normal. (-) Respiratory distress, (-) Wheezes, (-) Rales Abd: Soft, (-) tenderness, (-) Distension, (-) Guarding, (-) Rebound Musculoskeletal: (-) Edema. Slight bony tenderness on the proximal tibia. No tenderness to the knee. No medial or lateral joint laxity. Negative anterior and posterior drawer sign. Lymph: (-) Cervical adenopathy Neuro: Alert, Oriented x3 Psych: Mood and affect Normal Triage Information Reviewed: Yes Vital Signs On Initial Exam: Initial Vitals Temp Pulse Resp BP Pulse Ox 97.7 F 90 18 146/89 98 08/02/19 10:21 08/02/19 10:21 08/02/19 10:21 08/02/19 10:21 08/02/19 10:21 Vital Signs Reviewed: Yes Procedures - Sedation Patient Received Moderate/Deep Sedation with Procedure: No Diagnostics - Vital Signs Vital Signs Temp Pulse Resp BP Pulse Ox 08/02/19 10:21 97.7 F 90 18 146/89 98 - Laboratory Lab Statement: Any lab studies that have been ordered have been reviewed, and results considered in the medical decision making process. - Radiology Knee XR Radiology Interpretation Completed By: Radiologist Summary of Radiographic Findings: 1. JOINT EFFUSION, NO FRACTURE IS SEEN. 2. STATUS POST ANTERIOR CRUCIATE LIGAMENT REPAIR. 3. MODERATE OSTEOARTHRITIC CHANGE. ED physician has reviewed this report. Lower Extremity XR Radiology Interpretation Completed By: Radiologist Summary of Radiographic Findings: Post surgical changes, no evidence for acute fracture. ED physician has reviewed this report. Lower Extremity Course/Dx - Course Course Of Treatment: Patient is here after falling on her left knee. Patient had x-ray of her knee and tibia/fibula which were negative for fracture. Patient ready has a knee brace. Patient was given crutches. Patient could be suffering from an internal knee injury is so she was sent to orthopedic surgery for follow-up - Diagnoses Provider Diagnoses: Left knee injury Discharge ED - Sign-Out/Discharge Documenting (check all that apply): Patient Departure - Discharge Plan Condition: Stable Disposition: HOME Prescriptions: traMADol TAB* [Ultram*] 50 mg PO Q12H PRN #8 tab MDD 100 mg PRN Reason: Pain - Severe Patient Education Materials: Knee Pain (ED), R.I.C.E. Treatment (ED) Referrals: Anamika Cai PA [Primary Care Provider] - Deangelo Campo MD [Medical Doctor] - 3 Days Additional Instructions: Use your crutches for your comfort. Elevate your leg, use ice on your knee for the pain as needed, and take Tylenol and Ibuprofen as needed for your pain. Take your prescribed pain medications if all the above is not working. Follow up with orthopedics in 1-3 days. Return to the emergency department with any new or worsening symptoms. - Billing Disposition and Condition Condition: STABLE Disposition: Home - Attestation Statements Document Initiated by Felix: Yes Documenting Scribe: Carole Berumen Provider For Whom Felix is Documenting (Include Credential): Lucio Bates MD. Scribe Attestation: Carole Payne scribed for Lucio Bates MD. on 08/02/19 at 2121. Scribe Documentation Reviewed: Yes Provider Attestation: The documentation as recorded by the Carole jacobs accurately reflects the service I personally performed and the decisions made by , Lucio Bates MD. Status of Scribe Document: Viewed
[2019-08-02 13:05] VITALS: BP 140/88
== END 2019-08-02 13:04 | disposition home or self-care (01) ==
LOC: ED 10:13
DX: S89.92XA Unspecified injury of left lower leg, initial encounter (principal); M25.462 Effusion, left knee; M17.12 Unilateral primary osteoarthritis, left knee; W00.0XXA Fall on same level due to ice and snow, initial encounter; Y92.9 Unspecified place or not applicable; E07.9 Disorder of thyroid, unspecified; K21.9 Gastro-esophageal reflux disease without esophagitis; F41.9 Anxiety disorder, unspecified; F31.9 Bipolar disorder, unspecified; Z91.040 Latex allergy status; F17.200 Nicotine dependence, unspecified, uncomplicated
CPT/HCPCS: 99282